=== PATIENT | male | born 1985 | race Asian ===

== ENCOUNTER 2019-06-12 23:33 | Emergency (ER) | payer BC ==
[~2019-06-12] VITALS: Ht 180.3 cm; Wt 108.9 kg
[2019-06-12 23:38] VITALS: BP 130/76; Ht 180.3 cm; Wt 108.9 kg
== END 2019-06-13 01:35 | disposition home or self-care (01) ==
LOC: ED 23:33
DX: R07.89 Other chest pain (principal)
CPT/HCPCS: Q0092